=== PATIENT | male | born 1955 | race Caucasian/White ===

== ENCOUNTER 2017-10-03 00:34 | Inpatient (IN) | payer BC ==
[~2017-10-03] VITALS: Ht 180.3 cm; Wt 97.9 kg
[2017-10-03 01:17] LABS: HEMATOCRIT 44.9 % (38.0-50.0); HEMOGLOBIN 15.5 G/DL (12.5-16.6); MCH 32.7 PG (29.0-34.0); MCHC 34.5 G/DL (30.0-36.0); MCV 94.7 FL (86-99); PLATELET COUNT 224 K/uL (156-360); RBC DIS.WIDTH-CV 12.4 % (11.8-14.6); RBC DIS.WIDTH-SD 43.3 % (39-53); RED BLOOD COUNT 4.74 M/uL (4.00-5.50); WHITE BLOOD COUNT 16.9 K/uL (4.1-10.2)
[2017-10-03 01:24] LABS: CHLORIDE 101 mEq/L (99-109); POTASSIUM 4.3 mEq/L (3.7-5.4); SODIUM 139 mEq/L (136-147)
[2017-10-03 01:26] LABS: GLUCOSE 112 mg/dL (70-99)
[2017-10-03 01:30] LABS: CREATININE 0.8 mg/dL (0.6-1.3); GFR ESTIMATE (CALCULATED) > 59 mL/min/ (58.99-99999)
[2017-10-03 01:31] LABS: UREA NITROGEN (BUN) 17 mg/dL (9-23)
[2017-10-03 01:37] LABS: TROP-I INTERPRETATION NEGATIVE; TROPONIN-I 0.01 ng/mL (0.0-0.30)
[2017-10-03 05:21] LABS: TOTAL PROTEIN 6.8 g/dL (6.4-8.3)
[2017-10-03 05:23] LABS: TOTAL BILIRUBIN 0.4 mg/dL (0.0-1.0)
[2017-10-03 05:24] LABS: ALKALINE PHOSPHATASE 54 IU/L (3-129)
[2017-10-03 05:26] LABS: AST (GOT) 20 IU/L (2-34); DIRECT BILIRUBIN 0.2 mg/dL (0.0-0.3)
[2017-10-03 05:27] LABS: ALT (GPT) 19 IU/L (3-49)
[2017-10-03] MEDS ORDERED: SIMVASTATIN20 MG PO (09:29)
[2017-10-03] MEDS ORDERED: OMEPRAZOLE20 MG PO (09:29)
[2017-10-03] MEDS ORDERED: MULTI VITAMIN1 EACH PO (09:30)
[2017-10-03] MEDS ORDERED: ASPIR-LOW81 MG PO (09:30)
[2017-10-03] MEDS ORDERED: NIASPAN,SLO-NI500 MG PO (09:30)
[2017-10-03] MEDS ORDERED: LORATADINE10 M2 PO (09:31)
[2017-10-03] MEDS ORDERED: VITAMIN C250 MG PO (09:31)
[2017-10-03 16:53] VITALS: BP 140/86
[2017-10-04] VITALS: BP 110/58
[2017-10-04 07:22] LABS: CHLORIDE 106 MEQ/L (99-109); CREATININE 0.7 MG/DL (0.6-1.3); GFR ESTIMATE (CALCULATED) > 59 mL/min/ (58.99-99999); GLUCOSE 129 mg/dL (70-99); POTASSIUM 3.7 MEQ/L (3.7-5.4); SODIUM 141 MEQ/L (136-147); UREA NITROGEN (BUN) 16 mg/dL (9-23)
[2017-10-04 07:30] VITALS: BP 144/79
[2017-10-04 10:11] LABS: BASOPHIL (%) 0.1 % (0-1); EOSINOPHIL (%) 0 % (0-5); HEMATOCRIT 41.7 % (38.0-50.0); HEMOGLOBIN 14.1 G/DL (12.5-16.6); IMMATURE GRANULOCYTE (%) 0.6 % (0.0-0.7); LYMPHOCYTE (%) 5.1 % (15-42); LYMPHOCYTE COUNT 0.9 K/uL (1.0-2.8); MCH 32.6 PG (29.0-34.0); MCHC 33.8 G/DL (30.0-36.0); MCV 96.3 FL (86-99); MONOCYTE (%) 2.1 % (3-12); MONOCYTE COUNT 0.4 K/uL (0-0.8); NEUTROPHIL (%) 92.1 % (45-76); PLATELET COUNT 243 K/uL (156-360); RBC DIS.WIDTH-CV 12.7 % (11.8-14.6); RBC DIS.WIDTH-SD 45.5 % (39-53); RED BLOOD COUNT 4.33 M/uL (4.00-5.50); WHITE BLOOD COUNT 17.3 K/uL (4.1-10.2)
[2017-10-04 16:33] VITALS: BP 146/80
[2017-10-04 23:56] VITALS: BP 146/81
[2017-10-05 07:49] VITALS: BP 149/88
[2017-10-05] MEDS ORDERED: OSELTAMIVIR PHO75 MG PO (10:05)
[2017-10-05] MEDS ORDERED: AUGMENTIN875 MG PO (10:05)
[2017-10-05] MEDS ORDERED: SPIRIVA RESPIMAT4 GM IH (10:05)
[2017-10-05] MEDS ORDERED: ADVAIR HFA120 INHALA IH (10:05)
[2017-10-05] MEDS ORDERED: PREDNISONE20 MG PO (10:05)
[2017-10-05] MEDS ORDERED: VENTOLIN HFA18 GM IH (10:05)
[2017-10-05] MEDS ORDERED: NIFEDIPINE ER30 MG PO (10:05)
== END 2017-10-05 13:00 | disposition home or self-care (01) | DRG 190 ==
LOC: EME → EDBD 00:34 → EME 00:34 → EDOF 04:29 → 5EAST 04:29 → ENRESERV 04:33 → 5EAST 16:32 → ENPENDDIS 10-05 → 5EAST 10-05 13:00
PROVIDERS: Emergency Medicine; Hospitalist
DX: J44.0 Chronic obstructive pulmonary disease with (acute) lower respiratory infection (principal); J96.01 Acute respiratory failure with hypoxia; J10.08 Influenza due to other identified influenza virus with other specified pneumonia; E78.5 Hyperlipidemia, unspecified; I10 Essential (primary) hypertension; J12.9 Viral pneumonia, unspecified; F17.210 Nicotine dependence, cigarettes, uncomplicated; E66.9 Obesity, unspecified; K21.9 Gastro-esophageal reflux disease without esophagitis; K63.5 Polyp of colon; Z68.30 Body mass index [BMI] 30.0-30.9, adult; Z87.891 Personal history of nicotine dependence; Z80.3 Family history of malignant neoplasm of breast; Z80.0 Family history of malignant neoplasm of digestive organs; Z86.010 Personal history of colon polyps
CPT/HCPCS: 71045; 71275; 80048; 80076; 83605; 84484; 85025; 85027; 85379; 87040; 87070; 87205; 87449; 87502; 93005; 94640; 94640 76; 94799; 99202; 99281; 99285; J0295; J0456; J1650; J2920; J2930; J3370; J7030; J7050